=== PATIENT | female | born 1995 | race African-American/Black ===

== ENCOUNTER 2016-11-26 20:09 | Inpatient (IN) | payer OTHER ==
--- NOTE | ~2016-11-26 | HP ---
Unit #: [id number] #: [id number] Patient: ZBIGNIEW TELLEZ [id number] [place] [address] [id number] MR#: [id number] NAME: ZBIGNIEW TELLEZ ROOM: P182 Age: 21 Sex: F Admission Date: 11/26/2016 : 1995 Attending Physician: Mickey Smith M.D. Admitting Physician: Mickey Smith M.D. Primary Care Physician: Primary Care Physician No HISTORY AND PHYSICAL HISTORY OF PRESENT ILLNESS Zbigniew is a 21-year-old female admitted to [facility] with depression and verbalizing wanting to hurt herself. PAST MEDICAL HISTORY Nothing significant. PAST SURGICAL HISTORY Nothing reported. ALLERGIES Penicillin. SOCIAL HISTORY She denies cigarettes, alcohol, and illicit drug use. FAMILY HISTORY Medically noncontributory. REVIEW OF SYSTEMS CONSTITUTIONAL: No fever or chills. HEENT: Denies any sore throat, ear pain or runny nose. CARDIOVASCULAR: Denies chest pain, irregular heart rhythm or palpitations. CHEST: Denies shortness of breath or cough. No hemoptysis. GASTROINTESTINAL: Denies nausea, vomiting, diarrhea or chronic constipation. ENDOCRINE: Denies history of increased thirst or urination. No recent significant weight loss or gain. GENITOURINARY: Denies dysuria, frequency, or hematuria. SKIN: Denies any rashes. HEMATOLOGIC: Denies history of increased bleeding or bruising. MUSCULOSKELETAL: Denies any hot, swollen joints. No generalized muscle pain. NEUROLOGIC: Denies problems with vision or speech. No frequent, severe headaches. No numbness, tingling or weakness in any extremities. Denies loss of bladder or bowel control. CURRENT MEDICATIONS 1. Celexa 20 mg q. day. 2. Desyrel 100 mg q.h.s. p.r.n. 3. Milk of Magnesia p.r.n. 4. Maalox p.r.n. 5. Tylenol p.r.n. Unit #: [id number] #: [id number] Patient: ZBIGNIEW TELLEZ PHYSICAL EXAMINATION GENERAL: Alert, well nourished. No apparent distress. VITAL SIGNS: Blood pressure 100/60, heart rate 80, respirations 16, and temperature 98.6. WEIGHT: 172. HEIGHT: 5 feet 4 inches. SKIN: Warm and dry without rash or lesion. HEENT: Normocephalic. TMs not viewed. Oral and nasal passages clear. Conjunctivae clear. PERRLA. EOMs intact. NECK: Supple without lymphadenopathy or thyromegaly. HEART: Regular rate and rhythm without murmur. LUNGS: Clear. ABDOMEN: Soft, nontender. : Not done. EXTREMITIES: No evidence of cyanosis, clubbing or edema. Moves all without focal deficit. NEUROLOGICAL: Grossly within normal limits. Cranial Nerves: II: Visual tripathi are intact. III, IV AND : Extraocular movements are intact. Pupils are equal, round and reactive to light. V: Facial sensation is grossly normal. VII: Facial movements and expression are normal. VIII: Auditory acuity grossly intact. IX, X: Uvula is midline. Phonation is normal. XI: Patient shrugs shoulders and turns head normally. XII: Tongue protrudes in the midline. Sensory and Motor Function: Sensory and motor sensation is grossly normal. Motor: moves all extremities well. Coordination: Gait is normal. Deep Tendon Reflexes: Intact. IMPRESSION Psychiatric admission. RECOMMENDATIONS PSYCHIATRIC: Per psychiatrist. MEDICAL: I see no contraindication to participate in this facility's activities. MEDICAL PROGNOSIS Good. MEDICAL CONDITION Stable. Dictated by... Licha Denny P.A.-C. for Nida Child/anuel TD: 11/28/2016 07:53 JOB #: [id number] Unit #: [id number] #: [id number] Patient: ZBIGNIEW TELLEZ HISTORY AND PHYSICAL Page 1 of 1 X Licha Denny HISTORY AND PHYSICAL
--- NOTE | ~2016-11-26 | DS ---
Unit #: [id number] #: [id number] Patient: SWATHI SOUZA [id number] [facility] [address] [place] [address] [id number] MR#: [id number] NAME: SWATHI SOUZA ROOM: P182 Age: 21 Sex: F Admission Date: 11/26/2016 : 1995 Discharge Date: Attending Physician: Mickey Smith M.D. DISCHARGE SUMMARY IDENTIFYING DATA Ms. Souza is a 21-year-old single female, who is a resident of [place], [place], and is known to us from previous encounter, was self-referred to the hospital. DISCHARGE DIAGNOSES Psychiatric: Major depressive disorder, recurrent, moderate, without psychotic features; opioid dependence, moderate; benzodiazepine abuse, moderate. Medical: None. Stressors: Moderate psychosocial stressors. HISTORY OF PRESENT ILLNESS Please see initial psychiatric evaluation for details. PAST PSYCHIATRIC HISTORY Please see initial psychiatric evaluation for details. PAST MEDICAL HISTORY Please see initial psychiatric evaluation for details. HOSPITAL COURSE The patient was admitted to the adult psychiatric unit at [facility] and was oriented to the hospital environment. Routine p.r.n. medications were initiated, and she was started on the detox protocol and was also started on Celexa and Seroquel to help with depression and anxiety, and was closely monitored. She was taking the medications regularly and was tolerating them fairly well and was able to show a decent and therapeutic response and as such, it was decided that she will be discharged home and will continue treatment on an outpatient basis. DISCHARGE MEDICATIONS Celexa 20 mg a day for depression, and Seroquel 100 mg at bedtime for depression. DISCHARGE CONDITION Stable. PROGNOSIS Fair. Dictated by... Mickey Smith M.D. Unit #: [id number] #: [id number] Patient: SWATHI SOUZA IAA/modl TD: 12/02/2016 06:35 JOB #: [id number] DISCHARGE SUMMARY Page 1 of 1 X Mickey Smith MD DISCHARGE SUMMARY
--- NOTE | ~2016-11-26 | PN ---
Unit #: [id number] #: [id number] Patient: SWATHI TELLEZ [id number] [facility] [address] [place] [address] [id number] MR#: [id number] NAME: SWATHI TELLEZ ROOM: P182 Age: 21 Sex: F Admission Date: 11/26/2016 : 1995 Attending Physician: Mickey Smith M.D. Admitting Physician: Mickey Smith M.D. Primary Care Physician: Primary Care Physician Tata ANDREW NOTES DATE 11/28/2016 DISCUSSION Ms. Tellez is a 21-year-old female who was seen today and chart was reviewed and case was discussed with the staff. She has been anxious, withdrawn and rather seclusive to herself and reports not feeling good and that she was up until 5:30 in the morning and was pacing the hallways and her mind was racing and she was unable to calm herself down. Meanwhile, she has been taking her medications and tolerating them fairly well with no reported side effects. MENTAL STATUS EXAMINATION Young female who was casually dressed with fair personal hygiene, appears to be in no acute distress or discomfort. She was awake and alert with impaired attention and concentration. Her mood was anxious with congruent affect. Her speech was slow and goal directed. She denies any suicidal or homicidal ideation and also denies any auditory or visual hallucinations. Her insight and judgement remains slightly impaired. TREATMENT PLAN 1. We will continue her on her current medications and treatment protocol. We will monitor her response to the medications and make further adjustments as needed. 2. We will continue to follow up. Dictated by... Nida aDvidson/jovanni TD: 12/02/2016 02:16 JOB #: [id number] Unit #: [id number] #: [id number] Patient: SWATHI TELLEZ [facility] PROGRESS NOTES Page 1 of 1 X Mickey Smith MD PROGRESS NOTE
--- NOTE | ~2016-11-26 | PA ---
Unit #: [id number] #: [id number] Patient: SWATHI SOUZA [id number] [facility] [address] [place] [address] [id number] I MR#: [id number] NAME: SWATHI SOUZA ROOM: P182 Age: 21 Sex: F Admission Date: 11/26/2016 : 1995 Date of Assessment: 11/27/2016 Attending Physician: Mickey Smith M.D. Admitting Physician: Mickey Smith M.D. Primary Care Physician: Primary Care Physician No PSYCHIATRIC ASSESSMENT DATE OF SERVICE 11/27/2016. IDENTIFYING DATA Ms. Souza is a 21-year-old single female, who is a resident of [place], [place], and is known to us from previous encounter and was self-referred to the hospital on a voluntary basis. CHIEF COMPLAINT "I'm coming off Xanax and I'm going through depression and suicidal ideations." HISTORY OF PRESENT ILLNESS Ms. Souza is a 21-year-old female with a history of mood disorder and substance abuse, who is known to me from previous encounter with diagnosis of depression and opioid dependence; however, she was self-referred to the hospital and was reporting substance abuse and depression issues and reports that she is coming off Xanax and she is going through depression and has been having some suicidal thoughts, but denies any plan to kill herself and reports she that cut sometimes, but not to kill herself and reports that she wants to sometimes and reports that she feels like she wants to today, but does not have a plan and that she has thoughts about hurting her ex-boyfriend and step-dad, but not killing them. She reports that she does not think that she is employed at this time and has poor social support system and that she was going to and then she had a miscarriage and reports increasing depression, anxiety, irritability, restlessness, psychomotor agitation, feelings hopelessness and helplessness, and suicidal ideation, but denies any intent or plan. SUBSTANCE ABUSE HISTORY The patient has a history of alcohol, cannabis, opioids, and benzodiazepine abuse, and currently, it appears that benzodiazepines has been her drug of choice. PAST PSYCHIATRIC HISTORY The patient has had a [facility] and mood disorder and substance abuse, though currently she is not active in any treatment program, is not seeing a psychiatrist, and is not taking any psychotropic medications. PAST MEDICAL HISTORY The patient's medical history is insignificant. Unit #: [id number] #: [id number] Patient: SWATHI SOUZA ALLERGIES No known medication allergies. PERSONAL AND SOCIAL HISTORY A 21-year-old female, who reports that she is single, unemployed, and essentially homeless and has poor social support system. MENTAL STATUS EXAMINATION Young female, who was casually dressed with a fair personal hygiene, appears to be in no acute distress or discomfort. She was awake and alert on interaction with intact orientation. Her mood was anxious and depressed with a congruent affect. Her speech was slow and goal directed. She reports having suicidal ideation, but denies any homicidal ideations and also denies any auditory or visual hallucinations. Her insight and judgment remain significantly impaired. DIAGNOSTIC IMPRESSION Psychiatric: Major depressive disorder, recurrent, moderate, without psychotic features; opioid abuse, moderate; and benzodiazepine abuse, moderate. Medical: None. Stressors: Moderate psychosocial stressors. TREATMENT PLAN 1. The patient has presented with a history of substance abuse and mood disorder and has been decompensating and will need inpatient hospitalization for detoxification, safety, and stabilization. We will start her on detox protocol. We will closely monitor for any worsening withdrawal symptoms. 2. Supportive therapy was provided to the patient. 3. Safe, structured, and nourishing environment will be provided. ESTIMATED LENGTH OF STAY 4 to 5 days. ABILITY TO HELP SELF Limited. WILLINGNESS TO HELP SELF The patient appears to be willing to help self. STRENGTHS 1. Communicative. 2. Cooperative. PROBLEMS 1. Chronic dysphoric symptoms. 2. Poor social support system. DISCHARGE CRITERIA This will be contingent upon the patient's ability to show resolution of her depression and anxiety and her ability to stay safe and sober, particularly after discharge from the hospital. Dictated by... Mickey Smith M.D. Unit #: [id number] #: [id number] Patient: SWATHI SOUZA IAA/modl TD: 11/27/2016 16:57 JOB #: [id number] PSYCHIATRIC ASSESSMENT Page 1 of 1 X Mickey Smith MD PSYCHIATRIC ASSESSMENT
--- NOTE | ~2016-11-26 | PN ---
Unit #: [id number] #: [id number] Patient: SWATHI TELLEZ [id number] [facility] [address] [place] [address] [id number] MR#: [id number] NAME: SWATHI TELLEZ ROOM: P182 Age: 21 Sex: F Admission Date: 11/26/2016 : 1995 Attending Physician: Mickey Smith M.D. Admitting Physician: Mickey Smith M.D. Primary Care Physician: Primary Care Physician Tata BLOOD PROGRESS NOTES DATE 11/29/2016 DISCUSSION Ms. Tellez is a 21-year-old female who was seen today and chart was reviewed and case was discussed with the staff. She reports she finally slept much better last night with adjustment to the medications and still has been seclusive to herself and has been exhibiting some persistent depressive symptoms though has been polite and pleasant and cooperative with treatment recommendations. MENTAL STATUS EXAMINATION Young female who was casually dressed with fair personal hygiene, appears to be in no acute distress or discomfort. She was awake and alert with impaired attention and concentration. Her mood was anxious and depressed with congruent affect. She denies any current suicidal or homicidal ideations. Her insight and judgement remains slightly impaired. TREATMENT PLAN 1. We will continue her on her current medications and treatment protocol. We will monitor her response and make further adjustments as needed. 2. We will continue to follow up. Dictated by... Nida Davidson/jovanni TD: 12/03/2016 00:57 JOB #: [id number] Unit #: [id number] #: [id number] Patient: SWATHI TELLEZ PROGRESS NOTES Page 1 of 1 X Mickey Smith MD PROGRESS NOTE
--- NOTE | ~2016-11-26 | PN ---
Unit #: [id number] #: [id number] Patient: SWATHI SOUZA [id number] [facility] [address] [place] [address] [id number] I MR#: [id number] NAME: SWATHI SOUZA ROOM: P182 Age: 21 Sex: F Admission Date: 11/26/2016 : 1995 Attending Physician: Mickey Smith M.D. Admitting Physician: Mickey Smith M.D. Primary Care Physician: Primary Care Physician No [facility] PROGRESS NOTES DATE OF SERVICE: 12/01/2016 SUBJECTIVE Ms. Souza is a 21-year-old female who was seen today and chart was reviewed, and case was discussed with the staff. She has been doing fairly well and has been showing improvement in her detox . MENTAL STATUS EXAMINATION Young female who was casually dressed with fair personal hygiene, appears to be in no acute distress or discomfort. She was awake and alert with impaired attention and concentration. Her mood was anxious and depressed with a congruent affect. She denies any suicidal or homicidal ideations. Her insight and judgment remain slightly impaired. TREATMENT PLAN 1. We will continue on her current treatment protocol. We will monitor her response to medications and make further adjustments as needed. 2. We will continue to follow up. Dictated by... Nida Davidson/reina TD: 12/02/2016 12:57 JOB #: [id number] [facility] PROGRESS NOTES Page 1 of 1 X Mickey Smith MD PROGRESS NOTE
--- NOTE | ~2016-11-26 | PN ---
Unit #: [id number] #: [id number] Patient: SWATHI TELLEZ [id number] [facility] [address] [place] [address] [id number] I MR#: [id number] NAME: SWATHI TELLEZ ROOM: P182 Age: 21 Sex: F Admission Date: 11/26/2016 : 1995 Attending Physician: Mickey Smith M.D. Admitting Physician: Mickey Smith M.D. Primary Care Physician: Primary Care Physician Tata ANDREW NOTES DATE November 30, 2016 DISCUSSION Ms. Tellez is a 21-year-old female, who was seen today and chart was reviewed and the case was discussed with the staff. She has been lying in the bed and has been exhibiting some persistent depressive symptoms and has been short to communicate with and has not been interacting or socializing much and neither does she appear to be coming out r going to therapy groups and has been isolative. She has been; however, coming to therapy groups and she has been tolerating the medications without side effects. MENTAL STATUS EXAMINATION Young female, who was casually dressed with fair personal hygiene and appears to be in no acute distress or discomfort. She was awake and alert with impaired attention an concentration. Her mood was anxious and depressed with a congruent affect. Her speech is slow and restricted in content. The patient denies any suicidal or homicidal ideations, and also denies any auditory or visual hallucinations. Her insight and judgment remain slightly impaired. TREATMENT PLAN 1. We will continue her on her current medications and treatment protocol, and will monitor her response to the medications, and make further adjustments as needed. 2. We will continue to followup. Dictated by... Nida Davidson/adis TD: 12/03/2016 10:31 JOB #: [id number] Unit #: [id number] #: [id number] Patient: SWATHI TELLEZ [facility] PROGRESS NOTES Page 1 of 1 X Mickey Smith MD PROGRESS NOTE
[2016-11-27 09:40] LABS: BASOPHIL% 0.4 % (0-2.5); EOSINOPHIL# 0.1 X10e3 (0-0.7); EOSINOPHIL% 1.2 % (0.0-7.0); HEMATOCRIT 39.9 % (35.0-45.0); HEMOGLOBIN 13.2 gm/dL (12.0-16.0); LYMPHOCYTE# 2.7 X10e3 (1.0-3.5); LYMPHOCYTE% 28.6 % (17.0-45.0); MEAN CELL VOLUME 87.5 FL (83-96); MEAN CORPUSCULAR HEMOGLOBIN 28.8 PG (28-34); MEAN PLATELET VOLUME 8.2 FL (6.5-11.5); MONOCYTE# 0.6 X10e3 (0-1.0); MONOCYTE% 6.4 % (3.0-12.0); NEUTROPHIL# 5.9 X10e3 (1.5-7.1); NEUTROPHIL% 63.4 % (40-75); PLATELET COUNT 268 X10e3 (140-420); RED BLOOD COUNT 4.56 X10e (3.90-5.30); RED CELL DISTRIBUTION WIDTH 12.7 % (11.0-15.5); WHITE BLOOD COUNT 9.4 X10e3 (4.0-10.5)
[2016-11-27 09:43] LABS: URINE APPEARANCE TURBID; URINE BILIRUBIN NEG (NEG); URINE BLOOD NEG (NEG); URINE COLOR YELLOW; URINE GLUCOSE NEG (NEG); URINE KETONE NEG (NEG); URINE LEUKOCYTE ESTERASE 1+ (NEG); URINE NITRATE NEG (NEG); URINE PROTEIN NEG (NEG); URINE SPECIFIC GRAVITY 1.024 (1.003-1.035); URINE UROBILINOGEN 0.2 MG/DL (NEG)
[2016-11-27 09:43] LABS: DIFF IND NO
[2016-11-27 09:47] LABS: URBCS1 AUWI 0-2 /[HPF] (0-2); URINE BACTERIA AUWI NEG (NEGATIVE); URINE SQUAMOUS EPITHELIAL CELL OCC /[HPF]
[2016-11-27 10:02] LABS: ALBUMIN SERUM 3.5 g/dL (3.5-5.0); BILIRUBIN,TOTAL 0.5 mg/dL (0.2-2.0); BUN/CREATININE RATIO 14.44; CALCIUM SERUM 8.7 mg/dL (8.4-10.2); CREATININE SERUM 0.9 mg/dL (0.6-1.4); GLOM FILT RATE Estimated 105.3 mL/min (>60); POTASSIUM 3.5 mmol/L (3.5-5.1); PROTEIN TOTAL SERUM 6.2 g/dL (6.0-8.3)
[2016-11-27 10:08] LABS: THYROID STIMULATING HORMONE 0.94 uIU/ml (0.34-5.60)
[2016-11-27 10:17] LABS: FREE THYROXIN (T4) 0.79 ng/dL (0.58-1.64)
[2016-11-27 10:22] LABS: AMPHETAMINE NEG (NEG); BARBITURATES NEG (NEG); BENZODIAZEPINES POS (NEG); COCAINE NEG (NEG); MARIJUANA NEG (NEG); OPIATES NEG (NEG); TRICYCLIC ANTIDEPRESSANTS NEG (NEG); U METHADONE NEG (NEG)
== END 2016-12-02 16:30 | disposition home or self-care (01) | DRG 885 ==
LOC: P2S 20:09 → P1E 11-27 13:21
PROVIDERS: Psychiatry & Neurology Psychiatry
PROC: HZ2ZZZZ Detoxification Services for Substance Abuse Treatment (ICD-10-PCS; principal; 2016-11-26)
DX: F33.1 Major depressive disorder, recurrent, moderate (principal); F13.10 Sedative, hypnotic or anxiolytic abuse, uncomplicated; F11.10 Opioid abuse, uncomplicated; F41.9 Anxiety disorder, unspecified; Z88.0 Allergy status to penicillin
CPT/HCPCS: 80053; 80307; 81003; 84439; 84443; 85025; 86592